=== PATIENT | male | born 1970 | race Caucasian/White ===

== ENCOUNTER 2021-04-26 08:36 | Emergency (ER) | payer BC ==
[~2021-04-26] VITALS: Ht 185.4 cm; Wt 119.3 kg
[~2021-04-26 08:36] MED LIST: OMNICEF 300 MG300 MG PO; ZITHROMAX250 MG PO
== END 2021-04-26 12:05 | disposition home or self-care (01) ==
LOC: ER1 08:36
DX: U07.1 COVID-19 (principal); Z23 Encounter for immunization; F17.210 Nicotine dependence, cigarettes, uncomplicated; E11.9 Type 2 diabetes mellitus without complications
CPT/HCPCS: 99283; M0245